=== PATIENT | male | born 1980 | race Caucasian/White ===

== ENCOUNTER 2017-06-11 20:45 | Emergency (ER) | payer SELFPAY ==
[~2017-06-11] VITALS: Ht 190.5 cm; Wt 77.7 kg
[2017-06-11 22:59] VITALS: BP 148/67
== END 2017-06-11 23:03 | disposition home or self-care (01) ==
LOC: EME 20:45 → RME 20:45
PROC: 0HQFXZZ Repair Right Hand Skin, External Approach (ICD-10-PCS; principal; 2017-06-11)
DX: S61.210A Laceration without foreign body of right index finger without damage to nail, initial encounter (principal); W31.89XA Contact with other specified machinery, initial encounter; Y92.63 Factory as the place of occurrence of the external cause; F17.200 Nicotine dependence, unspecified, uncomplicated; Y99.0 Civilian activity done for income or pay; M79.5 Residual foreign body in soft tissue
CPT/HCPCS: 73130; 99281; 99284